=== PATIENT | female | born 1945 | race African-American/Black ===

== ENCOUNTER 2019-10-14 20:46 | Inpatient (IN) | payer MEDICARE, OTHER ==
[~2019-10-14] VITALS: Ht 157.5 cm; Wt 47.6 kg
[2019-10-14 23:35] VITALS: BP 132/121
--- NOTE | 2019-10-14 23:35 | NUR ---
AUDIO NARRATOR NOTES RECEIVED PATIENT FROM [facility]. REPORT OBTAINED FROM HECTOR. PATIENT ARRIVED ON THIS UNIT AT 2330 VIA GURNEY WITH EMS AT BEDSIDE. A/O X3. NO SIGNS OF DISTRESS OR DISCOMFORT. PATIENT ADMITTED ON A 5150 HOLD FOR DTO. PER HOLD PATIENT THREATENED ROOMMATE WITH A GUN. THE 5150 WAS REVIEWED AND THE DOCUMENTATION IN THE 5150 HOLD REFLECTS THE PATIENTS PRESENTATION. PATIENT IS NOTED TO BEING VERY AGGRESSIVE, UNCOOPERATIVE, EASILY AGITATED AND HAVING ANGRY OUTBURST. PATIENT DENIES SI/HI AT THIS TIME AND STATES "NOTHING IS WRONG WITH ME, I AM NOT STAYING HERE". PATIENT IS REFUSING SKIN ASSESSMENT AND DOES NOT WANT TO HAVE HER PICTURE TAKEN FOR HER CHART. SHE IS ALSO REFUSING TO HAVE SWAB FOR MRSA DONE. PATIENT BELONGINGS WERE INVENTORIED AND CHECKED FOR CONTRABAND. ALL CONTRABAND REMOVED AND STORED IN PATIENT LOCKER. PATIENT ORIENTED TO UNIT AND ROOM. PATIENT EDUCATED ON THE USE OF CALL LEAHY. BED IN LOW LOCKED POSITION WITH SIDE RAILS UP X2. PATIENT RIGHTS AND MEDICATION GUIDE GIVEN AND EXPLAINED TO PATIENT. ENVIRONMENTAL SAFETY CHECK DONE. COMMERCIAL LITIGATION ATTORNEY NOTIFIED. PATIENT STATES SHE DOES NOT WANT TO NOTIFY ANYONE AT THIS TIME ABOUT HER ADMISSION. WILL CONTINUE TO MONITOR PATIENT Q15 MIN FOR SAFETY AND BEHAVIOR.
[2019-10-15] MEDS ORDERED: ACETAMINOPHEN 325 MG TABLET PO PRN
[2019-10-15] MEDS ORDERED: BLOOD SUGAR DIAGNOSTIC 1 EACH STRIP IN ONE
[2019-10-15] MEDS ORDERED: MAGNESIUM HYDROXIDE 30 ML UDC PO PRN
[2019-10-15] MEDS ORDERED: clonazePAM 0.5 MG TABLET PO PRN
[2019-10-15] MEDS ORDERED: TEMAZEPAM 7.5 MG CAPSULE PO PRN
[2019-10-15] MEDS ORDERED: MAG HYDROX/AL HYDROX/SIMETH 30 ML UDC PO PRN
--- NOTE | 2019-10-15 00:04 | NUR ---
GPS/RN NOTE: NO NEXT OF KIN TO NOTIFY ABOUT PATIENT'S ADMISSION TO THE UNIT, NONE GIVEN.
--- NOTE | 2019-10-15 00:09 | NUR ---
GPS/RN NOTE: ACCUCHECK DONE, 153 MG/DL. Addendum: 10/15/19 at 0132 by MINRA CUTLER RN GPS/RN NOTE: ACTUAL ACCUCHECK RESULT WAS 93 MG/DL. AND NOT 153 MG/DL.
[2019-10-15] MEDS ORDERED: [UNRECOGNIZED DRUG - OTHER] (00:26)
[2019-10-15] MEDS ORDERED: MIRT15TA7 PO (00:26)
[2019-10-15] MEDS ORDERED: CELE50CA PO (00:26)
[2019-10-15] MEDS ORDERED: AMLO1CAP2 PO (00:26)
--- NOTE | 2019-10-15 06:14 | NUR ---
RN NOTES PATIENT ADVISED THAT MD ORDERED TO COLLECT URINE SAMPLE FOR UA. PATIENT REFUSED X3. STATES "IM NOT GIVING YOU NOTHING, I DON'T OWE YOU ANYTHING!". RISK AND BENEFITS EXPLAINED. WILL RE-ATTEMPT TO COLLECT AND CONTINUE TO MONITOR.
[2019-10-15 08:00] VITALS: BP 159/78
[2019-10-15] MEDS ORDERED: Medication Not On Formulary EA (Amlodipine Besylate/Benazepril (Lotrel 10-40 Mg Capsule) PO SCH (09:00)
[2019-10-15] MEDS: BENAZEPRIL HCL 20 MG TABLET PO SCH (09:00)
[2019-10-15] MEDS ORDERED: CELECOXIB 50 MG PO SCH (09:00)
[2019-10-15] MEDS: AMLODIPINE BESYLATE 10 MG TABLET PO SCH (09:00)
--- NOTE | 2019-10-15 15:21 | NUR ---
RN NOTE: BP ELEVATED AT 180/89. PT CONT TO REFUSE BP MEDICATION. EDUCATED PT RE IMPORTANCE OF MEDICATION COMPLIANCE. PT CONT TO REFUSE
[2019-10-15 16:00] VITALS: BP 146/92
[2019-10-15 20:36] VITALS: BP 137/85
[2019-10-15 21:15] LABS: APPEARANCE,URINE SL CLOUDY (CLEAR); BILIRUBIN,URINE NEGATIVE (NEGATIVE); BLOOD, URINE SMALL Ery/uL (NEGATIVE); COLOR,URINE YELLOW (YELLOW); KETONES,URINE NEGATIVE (NEGATIVE); LEUKOCYTE ESTERASE ,URINE MODERATE (NEGATIVE); NITRITE, URINE NEGATIVE (NEGATIVE); PROTEIN,URINE TRACE mg/dl (NEGATIVE); UGLUCOSE NEGATIVE (NEGATIVE); UROBILINOGEN,URINE 0.2 EU/dL (0.2)
[2019-10-15] MEDS: MIRTAZAPINE 15 MG TABLET PO SCH (21:25)
[2019-10-15 21:26] LABS: BACTERIA,URINE 4+ /HPF (None Seen); SQUAMOUS EPITHELIAL CELL,UR Few /HPF (None Seen); WBC,URINE 81-100 /HPF (0-3)
--- NOTE | 2019-10-15 21:26 | NUR ---
RN NOTES: PT. REFUSED HS MEDS REMERON 7.5 MG PO , ENCOURAGED X3 ,EXPLAINED RISKS AND BENEFITS STILL REFUSED, STRONGLY REFUSED , PER PT. I AM NOT TAKING ANY MEDICATION.
[2019-10-16 08:00] VITALS: BP 157/85
[2019-10-16] MEDS: BENAZEPRIL HCL 20 MG TABLET PO SCH (08:19)
[2019-10-16] MEDS: AMLODIPINE BESYLATE 10 MG TABLET PO SCH (08:19)
--- NOTE | 2019-10-16 09:30 | NUR ---
FAMILY CONTACT: HEATHER contacted Pts daughter Buzz [phone] who confirmed that [facility] retrieved the gun from pts home. Daughter also stated that pt has been forgetful and saying things that don't make sense, and having anger outbursts for the past year and states that pt has no known psych history or mental health issues. Per daughter it is safe for pt to return home and stated that once stable for discharge she will pick pt up and transport home. Addendum: 10/16/19 at 1025 by MEAGAN ROMERO Daughter also stated that brunilda Humphreys roommate is no longer living in pts home.
--- NOTE | 2019-10-16 09:32 | NUR ---
RN NOTE: MAY AIRCRAFT REFUELLER NOTIFIED REGARDING UA RESULTS.
--- NOTE | 2019-10-16 10:19 | NUR ---
INITIAL DISCHARGE PLAN: Patient wishes to return home [address] [place] [address] . Per daughter Helen [phone] it is safe for pt to return home. SW will help form a safe and proper discharge in collaboration with .
[2019-10-16] MEDS: CEPHALEXIN MONOHYDRATE 500 MG CAPSULE PO SCH (10:20)
--- NOTE | 2019-10-16 10:20 | NUR ---
RN NOTE: KEFLEX ORDERED AND GIVEN.
--- NOTE | 2019-10-16 10:25 | NUR ---
ALEC: HEATHER contacted [facility] Address: [address], [place] [address] and spoke with Figueroa, front office representative who confirmed pts gun was retrieved from the home. Figueroa stated that ALEC report was not made due to pt being placed on a 5150 hold and roommate being aware of pts intent.
[2019-10-16 16:00] VITALS: BP 156/95
--- NOTE | 2019-10-16 16:19 | NUR ---
RN NOTE: TOM ORDERED. PT REFUSED TO SIGN CONSENT. REFUSAL FAXED TO PHARMACY.
[2019-10-16] MEDS: ARIPIPRAZOLE 2 MG TABLET PO SCH (17:44)
[2019-10-16 20:00] VITALS: BP 126/49
[2019-10-16] MEDS: MIRTAZAPINE 15 MG TABLET PO SCH (21:03)
[2019-10-16 22:00] VITALS: BP 125/70
--- NOTE | 2019-10-16 22:00 | NUR ---
RN NOTES: PT. TOOK HS MEDS REMERON 7.5 MG PO, WITH FAMILY ENCOURAGEMENT. WILL CONTINUITY OF CARE.
[2019-10-17 08:00] VITALS: BP 176/73
[2019-10-17] MEDS: CEPHALEXIN MONOHYDRATE 500 MG CAPSULE PO SCH ×2 (08:34→20:14)
[2019-10-17] MEDS: AMLODIPINE BESYLATE 10 MG TABLET PO SCH (08:49)
[2019-10-17] MEDS: ARIPIPRAZOLE 2 MG TABLET PO SCH ×2 (08:49→17:00)
[2019-10-17] MEDS: BENAZEPRIL HCL 20 MG TABLET PO SCH (08:51)
--- NOTE | 2019-10-17 08:53 | NUR ---
PATIENT IS SELECTIVE WITH HER MEDICATION ADMINISTRATION. REFUSED ABILIFY. SPOKE TO PATIENT'S DAUGHTER AND SHE WILL BE BRINGING IN PATIENT'S HOME BP MED FOR MD TO REVIEW AND FOR PHARMACY TO DISPENSE.
[2019-10-17 16:00] VITALS: BP 157/80
--- NOTE | 2019-10-17 16:12 | NUR ---
FAMILY CONTACT: SW contacted Pts daughter Buzz [phone] and left a voicemail informing her pt will be having a MEDICATION CAPACITY hearing on 10/18/19 at 1:30pm.
--- NOTE | 2019-10-17 19:54 | NUR ---
GPS/RN NOTE: AWAKE, ALERT, ORIENTED X2, AMBULATES ON HER OWN, CALM, AND APPROPRIATE. NO ACUTE DISTRESS NOTED. NO AGGRESSIVE BEHAVIOR OBSERVED, NO AGITATION NOTED. WILL MONITOR PATIENT FOR SAFETY AND BEHAVIOR.
--- NOTE | 2019-10-17 20:15 | NUR ---
GPS/RN NOTE: TOOK HER KEFLEX 500 MG CAP PO DUE FOR 2099.
[2019-10-17 20:26] VITALS: BP 139/73
[2019-10-17] MEDS: MIRTAZAPINE 15 MG TABLET PO SCH (21:13)
--- NOTE | 2019-10-17 21:14 | NUR ---
GPS/RN NOTE: MIRTAZAPINE 7.5 MG TAB PO REFUSED, EXPLAINED RISK AND BENEFITS X3, STILL REFUSED.
[2019-10-18] MEDS: ARIPIPRAZOLE 2 MG TABLET PO SCH ×2 (09:00→16:12)
[2019-10-18] MEDS: CEPHALEXIN MONOHYDRATE 500 MG CAPSULE PO SCH ×2 (09:27→20:31)
[2019-10-18] MEDS: LOTREL PO SCH (09:27)
--- NOTE | 2019-10-18 09:30 | NUR ---
PATIENT REFUSED ABILIFY
[2019-10-18 16:00] VITALS: BP 136/78
[2019-10-18] MEDS: HALOPERIDOL LACTATE INJ 5 MG/ML VIAL IM PRN (16:04)
--- NOTE | 2019-10-18 16:14 | NUR ---
FAMILY CONTACT: SW contacted Pts daughter Buzz [phone] and informed her pts MEDICATION CAPACITY hearing has been upheld and pt will receive IM if refusing PO medication. Daughter agreed with treatment plan.
--- NOTE | 2019-10-18 16:22 | NUR ---
PATIENT REFUSED ABILIFY. HALDOL IM GIVEN AFTER MULTIPLE FAILED ATTEMPTS ON ADMINISTERING PO ABILIFY.
--- NOTE | 2019-10-18 19:49 | NUR ---
GPS/RN NOTE: AWAKE, ALERT, ORIENTED X2. PATIENT IS CALM AND COOPERATIVE AND QUIET. NO AGGRESSIVE BEHAVIOR NOTED AT THIS TIME. DAUGHTER VISITS NOW AND AT THE BEDSIDE. REQUESTING TO TALK WITH THE DOCTOR. NOTE LEFT FOR MD IN FRONT OF THE CHART. WILL MONITOR FOR SAFETY AND BEHAVIOR.
[2019-10-18] MEDS: MIRTAZAPINE 15 MG TABLET PO SCH (20:31)
--- NOTE | 2019-10-18 20:31 | NUR ---
GPS/RN NOTE: KEFLEX 500 MG AND MIRTAZAPINE 7.5 MG TAB PO GIVEN AT THIS TIME PER DAUGHTER'S REQUEST. PATIENT MAY REFUSE LATER.
[2019-10-18 20:49] VITALS: BP 143/73
[2019-10-19 08:00] VITALS: BP_SYST 136; BP_DIAS 60; BP_DIAS 66
[2019-10-19] MEDS: CEPHALEXIN MONOHYDRATE 500 MG CAPSULE PO SCH ×3 (09:00→20:12)
[2019-10-19] MEDS: ARIPIPRAZOLE 2 MG TABLET PO SCH ×3 (09:00→16:51)
[2019-10-19] MEDS: LOTREL PO SCH (09:10)
[2019-10-19] MEDS: IBUPROFEN 400 MG TABLET PO PRN ×2 (09:10→09:25)
[2019-10-19] MEDS: HALOPERIDOL LACTATE INJ 5 MG/ML VIAL IM PRN (09:22)
[2019-10-19 16:00] VITALS: BP 139/79
[2019-10-19 20:03] VITALS: BP 132/72
--- NOTE | 2019-10-19 20:10 | NUR ---
GPS/RN NOTE: PATIENT'S DAUGHTER REQUESTED FOR HER NIGHT MEDICATIONS, KEFLEX 500 MG AND MIRTAZAPINE 7.5 MG.
[2019-10-19] MEDS: MIRTAZAPINE 15 MG TABLET PO SCH (20:12)
[2019-10-19 21:23] VITALS: BP 117/67
--- NOTE | 2019-10-19 21:24 | NUR ---
GPS/RN NOTE: LATEST BP NOW: 117/67, PULSE 62. Addendum: 10/19/19 at 2126 by MIRNA CUTLER RN GPS/RN NOTE: LATEST BP AND PULSE INTENDED FOR ANOTHER PATIENT. USER ERROR.
[2019-10-20 08:00] VITALS: BP 143/68
[2019-10-20] MEDS: ARIPIPRAZOLE 2 MG TABLET PO SCH ×2 (08:02→16:41)
[2019-10-20] MEDS: CEPHALEXIN MONOHYDRATE 500 MG CAPSULE PO SCH ×2 (08:02→20:40)
[2019-10-20] MEDS: LOTREL PO SCH (08:04)
[2019-10-20 16:00] VITALS: BP 138/75
[2019-10-20 20:06] VITALS: BP 135/72
[2019-10-20] MEDS: MIRTAZAPINE 15 MG TABLET PO SCH (21:01)
--- NOTE | 2019-10-20 21:35 | NUR ---
RN NOTES SPOKE TO PATIENT'S DAUGHTER AND ASKED IF HER MOM HAS BEEN TAKING HER MEDICATIONS. TOLD HER THAT PER MORNING NURSE SHE'S COMPLIANT WITH HER MEDS. DUE MEDICATIONS GIVEN BY MOUTH. WILL CONTINUE TO MONITOR.
--- NOTE | 2019-10-21 06:25 | NUR ---
RN CLOSING NOTES PATIENT IN BED ALERT AND ORIENTED X 3. VERBALLY RESPONSIVE AND ABLE TO FOLLOW DIRECTIONS. BREATHING REGULAR AND UNLABORED ON ROOM AIR. SLEPT FOR ABOUT 6-8HRS LAST NIGHT. NO EPISODE OF AGITATION OR AGGRESSIVE BEHAVIOR NOTED THE WHOLE SHIFT. REMAINED CALM AND COOPERATIVE. COMPLIANT WITH HER MEDICATIONS. BED LOW AND LOCKED ON FLAT POSITION. WILL ENDORSE TO MORNING SHIFT FOR LILIANA.
[2019-10-21 08:00] VITALS: BP_SYST 130; BP_SYST 150; BP_DIAS 73
[2019-10-21] MEDS: CEPHALEXIN MONOHYDRATE 500 MG CAPSULE PO SCH (08:46)
[2019-10-21] MEDS: ARIPIPRAZOLE 2 MG TABLET PO SCH ×3 (08:46→16:30)
[2019-10-21] MEDS: LOTREL PO SCH (08:47)
--- NOTE | 2019-10-21 15:32 | NUR ---
Group Note: SW went to patient's room to invite patient to attend today's support group at 1:00pm regarding holiday sensory activity being held in the activities room. Patient presented sitting on the edge of her bed talking on the phone with a love done. HEATHER encouraged the pt. to attend and just sit in. 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
[2019-10-21 16:00] VITALS: BP 116/61
--- NOTE | 2019-10-21 16:30 | NUR ---
RN NOTE ABILIFY 2.5 NOT ADMINISTERED. ALREADY ADMINISTERED 2MG EARLIER.
[2019-10-21 20:22] VITALS: BP 115/59
[2019-10-21] MEDS: MIRTAZAPINE 15 MG TABLET PO SCH (21:11)
[2019-10-22 08:00] VITALS: BP_SYST 130; BP_SYST 153; BP_DIAS 73
[2019-10-22] MEDS: LOTREL PO SCH (09:23)
[2019-10-22] MEDS: ARIPIPRAZOLE 2 MG TABLET PO SCH ×2 (09:24→16:38)
--- NOTE | 2019-10-22 14:09 | NUR ---
FAMILY CONTACT: HEATHER contacted Pts daughter Buzz [phone] and informed her pt will be discharged on 10/24/19. Daughter stated that she will pick pt up at 12:30 and transport home.
--- NOTE | 2019-10-22 15:04 | NUR ---
GROUP NOTE: SW encouraged pt to participate in group therapy discussing "discharge planning." Pt presented sitting on her bed reading a book, SW encouraged pt to participate in group and pt stated, "listen young lady you cannot make me do anything I will not go to your group because I don't need it." SW attempted to provided intervention but pt refused.
[2019-10-22 16:00] VITALS: BP 151/87
[2019-10-22 16:32] VITALS: BP 151/87
[2019-10-22 20:29] VITALS: BP 157/88
[2019-10-22] MEDS: MIRTAZAPINE 15 MG TABLET PO SCH (21:01)
[2019-10-23 08:00] VITALS: BP 160/86
[2019-10-23] MEDS: ARIPIPRAZOLE 2 MG TABLET PO SCH ×2 (08:42→16:16)
[2019-10-23] MEDS: LOTREL PO SCH (08:51)
--- NOTE | 2019-10-23 15:21 | NUR ---
GROUP NOTE: SW encouraged pt to participate in group therapy discussing "insight into mental illness." Pt was asleep and not easily aroused.
[2019-10-23 16:00] VITALS: BP 155/85
--- NOTE | 2019-10-23 19:30 | NUR ---
GPS/RN OPENING NOTE: RECEIVED PATIENT SLEEPING, AROUSABLE TO VERBAL STIMULI, , ALERT, ORIENTED X2, CONFUSED. PATIENT IS CALM, COOPERATIVE AND QUIET AT THIS TIME. NO APPARENT DISTRESS NOTED. NO C/O PAIN VERBALIZED. DENIES SI/HI/AVH AT THIS TIME. BED ALARM ON. BED IN LOW LOCKED POSITION. CALL LEAHY WITHIN REACH. WILL CONTINUE TO MONITOR Q15 MINS. FOR SAFETY AND BEHAVIOR.
[2019-10-23 20:25] VITALS: BP 131/63
[2019-10-23] MEDS: MIRTAZAPINE 15 MG TABLET PO SCH (22:45)
--- NOTE | 2019-10-24 03:55 | NUR ---
GPS RN NOTE PATIENT IS SLEEPING COMFORTABLY AT THIS TIME, WAS OUT OF BED 2 TIMES TO USE THE BATHROOM, NO AGITATION NOTED. REDIRECTED 7 SNACK WAS GIVEN, TOLERATED WELL. WILL CONTINUE Q15 MINS SAFETY CHECKS.
[2019-10-24 08:00] VITALS: BP 154/83
[2019-10-24] MEDS: LOTREL PO SCH (08:59)
[2019-10-24] MEDS: HALOPERIDOL LACTATE INJ 5 MG/ML VIAL IM PRN (08:59)
[2019-10-24] MEDS: ARIPIPRAZOLE 2 MG TABLET PO SCH (08:59)
--- NOTE | 2019-10-24 11:12 | NUR ---
DISCHARGE NOTE: Pt will be discharged at 12:30 via private vehicle home to [address] [place], [place] [id number] . Pts daughter Helen [phone] will be picking pt up and transporting home. Pts mood is anxious with congruent mood. Pt denied suicidal/homicidal ideation and denied visual/auditory hallucinations. Pt was given referrals to follow up with [facility] Address: [address] [place] [address] and [facility] Address: [address] [place] [address] . The multidisciplinary exit care form was done, printed, signed, and given to the patient.
--- NOTE | 2019-10-24 16:09 | NUR ---
REGULATORY AUDITOR NOTE: PATIENT IS A 74 YEAR OLD FEMALE DISCHARGED HOME TO [address] [facility] [address] . PATIENT IS IN STABLE CONDITION. VSS. NO ACUTE DISTRESS NOTED. NO COMPLAINTS. COMPLIANT WITH MEDICATION MANAGEMENT. COOPERATIVE WITH PLAN OF CARE. PSYCHIATRIC TREATMENT PLANS MET. MEDICAL TREATMENT PLANS DEFERRED FOR CONTINUAL MONITORING. DENIES SI/HI VAH AT THE TIME OF DISCHARGE. REFUSED SKIN CHECK. EDUCATED PATIENT ABOUT AFTERCARE WITH COPY PROVIDED. RETURNED PERSONAL BELONGINGS TO PATIENT. MEDICATIONS RECONCILED WITH DR DUNN AND DR NUNEZ ALONG WITH PSYCHIATRIC DISCHARGE ORDERS. DISCHARGE PAPERWORK SIGNED. FOR FOLLOW UP WITH [facility] [address] [facility] [address] [address] [facility] [address] [facility] [address] WITH[facility]. PATIENT LEFT [facility] GPS AT 1450. .
== END 2019-10-24 14:50 | disposition home or self-care (01) | DRG 885 ==
LOC: GPS 23:25
PROVIDERS: ADMIT Psychiatry & Neurology Psychosomatic Medicine
DX: F33.3 Major depressive disorder, recurrent, severe with psychotic symptoms (principal); N39.0 Urinary tract infection, site not specified; F29 Unspecified psychosis not due to a substance or known physiological condition; G89.29 Other chronic pain; I10 Essential (primary) hypertension; R45.850 Homicidal ideations; N32.81 Overactive bladder; Z87.42 Personal history of other diseases of the female genital tract; B96.89 Other specified bacterial agents as the cause of diseases classified elsewhere
CPT/HCPCS: 81000-TC; 82962-TC; 87086-TC; J1630